=== PATIENT | male | born 1965 | race Caucasian/White ===

== ENCOUNTER 2018-03-18 01:25 | Emergency (ER) | payer OTHER ==
[~2018-03-18] VITALS: Ht 172.7 cm; Wt 120.2 kg
[2018-03-18] MEDS ORDERED: ADVIL100 M1 (01:47)
[2018-03-18] MEDS ORDERED: KETO10TA2 PO (05:04)
== END 2018-03-18 14:36 | disposition home or self-care (01) ==
LOC: ER 01:25
DX: M25.462 Effusion, left knee (principal)

== ENCOUNTER 2019-06-21 22:22 | Emergency (ER) | payer OTHER ==
[~2019-06-21] VITALS: Ht 170.2 cm; Wt 108.9 kg
[~2019-06-21 22:22] MED LIST: ADVIL100 M1; KETO10TA2 PO
[2019-06-22] MEDS ORDERED: MEDROLPACK PO ×2 (01:47→01:49)
[2019-06-22] MEDS ORDERED: IPRATROPIU0.2 MG/1 M IH (01:48)
[2019-06-22] MEDS ORDERED: TUSNEL LIQUID178 ML PO (01:48)
[2019-06-22] MEDS ORDERED: ZITHROMAX500 MG PO (01:48)
== END 2019-06-22 02:01 | disposition home or self-care (01) ==
LOC: ER 22:22
DX: B34.9 Viral infection, unspecified (principal); R06.02 Shortness of breath